=== PATIENT | male | born 1990 | race Two or more races ===

== ENCOUNTER 2016-08-24 14:00 | Emergency (ER) | payer SELFPAY ==
[~2016-08-24] VITALS: Ht 193 cm; Wt 154.2 kg
--- NOTE | 2016-08-24 14:10 | NUR ---
PT AMBULATORY TO ER BED 11. C/O LLE PAIN AND SWELLING AND REDNESS X 3 DAYS WORST TO LLE. DENIES TRAUMA. STATES POSSIBLE INSECT BITE. DENIES SOB. STABLE VITALS. AFEBRILE COLLECTION OFFICER. AWAITINGMD EVAL.
--- NOTE | 2016-08-24 14:25 | NUR ---
SADE CURRY AT BEDSIDE FOR EVAL.
--- NOTE | 2016-08-24 14:28 | NUR ---
IV LINE STARTED BLOOD DRAWN AND SENT TO LAB.
[2016-08-24] MEDS ORDERED: CLINDAMYCIN 900 MG in IV D5W 100 ML IV ONE (14:30)
[2016-08-24] MEDS ORDERED: KETOROLAC TROMETHAMINE INJ 30 MG/ML VIAL IV ONE (14:30)
[2016-08-24] MEDS ORDERED: KETOROLAC TROMETHAMINE INJ 30 MG/ML VIAL ONE (14:37)
[2016-08-24] MEDS ORDERED: IV SET PRIMARY PUMP SET 1 EA INFUS.SET MC ONE (14:37)
[2016-08-24 14:43] LABS: BASOPHILS % (AUTO) 0.3 % (0.0-2.0); EOSINOPHILS # (AUTO) 0.3 /CMM (0.0-0.7); EOSINOPHILS % (AUTO) 1.7 % (0.0-6.0); HEMATOCRIT 47 % (39-51); HEMOGLOBIN 15.8 g/dL (13.5-17.5); LYMPHOCYTES # (AUTO) 3.2 /CMM (0.8-4.8); LYMPHOCYTES % (AUTO) 20.3 % (20.0-44.0); MEAN CORPUSCULAR HEMOGLOBIN 29 PG (26.0-33.0); MEAN CORPUSCULAR HGB CONC 34 g/dl (31.0-36.0); MEAN CORPUSCULAR VOLUME 87 fL (80-96); MONOCYTES % (AUTO) 6.6 % (2.0-12.0); NEUTROPHILS % (AUTO) 71.1 % (43.0-81.0); PLATELET COUNT (AUTO) 285 /CMM (150-450); RDW COEFFICIENT OF VARIATION 12.4 (11.5-15.0); RED BLOOD CELL COUNT(AUTO) 5.37 MIL/uL (4.5-6.0); WHITE BLOOD COUNT (AUTO) 15.5 K/uL (4.3-11.0)
--- NOTE | 2016-08-24 14:52 | NUR ---
U/S TECH AT BEDSIDE FOR LLE DUPLEX ULTRASOUND.
[2016-08-24 14:53] LABS: CALCIUM, SERUM 9.1 mg/dL (8.5-10.1); CREATININE 1.2 mg/dL (0.6-1.3); POTASSIUM 3.6 mmol/L (3.5-5.1)
[2016-08-24 14:59] LABS: ALBUMIN 3.6 g/dL (3.4-5.0); BILIRUBIN,DIRECT 0.1 mg/dL (0.0-0.2); BILIRUBIN,TOTAL 0.5 mg/dL (0.2-1.0); TOTAL PROTEIN, SERUM 7.6 g/dL (6.4-8.2)
[2016-08-24 15:25] LABS: LACTIC ACID 1.6 mmol/L (0.4-2.0)
--- NOTE | 2016-08-24 16:24 | NUR ---
Patient discharged to home in stable condition. Written and verbal after care instructions given. Patient verbalizes understanding of instruction.IV removed. Catheter intact and site benign. Pressure and 4x4 applied to site. No bleeding noted.
[2016-08-24 16:26] VITALS: BP 128/77
== END 2016-08-24 16:27 | disposition home or self-care (01) ==
LOC: ER 14:05
DX: L03.116 Cellulitis of left lower limb (principal); E66.01 Morbid (severe) obesity due to excess calories; I87.2 Venous insufficiency (chronic) (peripheral); B35.1 Tinea unguium; D72.829 Elevated white blood cell count, unspecified; F17.200 Nicotine dependence, unspecified, uncomplicated
CPT/HCPCS: 36415; 80048-TC; 80076-TC; 83605-TC; 85025-TC; 87040-TC; 93971-TC; A4606; J1885; J3490; J7060; Z7610

== ENCOUNTER 2017-12-16 17:21 | Emergency (ER) | payer SELFPAY ==
[~2017-12-16] VITALS: Ht 195.6 cm; Wt 158.8 kg
[2017-12-16 17:34] VITALS: BP 147/96
[2017-12-16] MEDS ORDERED: diphenhydrAMINE HCL 50 MG CAPSULE ONE (18:25)
[2017-12-16] MEDS ORDERED: predniSONE 20 MG TABLET ONE (18:26)
[2017-12-16] MEDS ORDERED: FAMOTIDINE (20 MG) 20 MG TABLET ONE (18:26)
[2017-12-16] MEDS: diphenhydrAMINE HCL 50 MG CAPSULE PO ONE (18:31)
[2017-12-16] MEDS: FAMOTIDINE (20 MG) 20 MG TABLET PO ONE (18:32)
[2017-12-16] MEDS: predniSONE 10 MG TABLET PO ONE (18:32)
== END 2017-12-16 18:34 | disposition home or self-care (01) ==
LOC: ER 17:23
DX: L23.9 Allergic contact dermatitis, unspecified cause (principal); E66.01 Morbid (severe) obesity due to excess calories; B35.4 Tinea corporis; F17.200 Nicotine dependence, unspecified, uncomplicated; R19.8 Other specified symptoms and signs involving the digestive system and abdomen
CPT/HCPCS: A4606; Q0163; Z7610

== ENCOUNTER 2018-08-19 10:44 | Emergency (ER) | payer SELFPAY ==
[~2018-08-19] VITALS: Ht 188 cm; Wt 79.4 kg
--- NOTE | 2018-08-19 10:48 | NUR ---
Pt called to triage, pt not in waiting room
[2018-08-19 10:54] VITALS: BP 114/68
--- NOTE | 2018-08-19 11:21 | NUR ---
Patient discharged to home in stable condition. Written and verbal after care instructions given. Patient verbalizes understanding of instruction.
== END 2018-08-19 11:23 | disposition home or self-care (01) ==
LOC: ER 10:53
DX: H92.02 Otalgia, left ear (principal); F17.200 Nicotine dependence, unspecified, uncomplicated
CPT/HCPCS: Z7502

== ENCOUNTER 2018-09-15 21:28 | Emergency (ER) | payer OTHER ==
[~2018-09-15] VITALS: Ht 190.5 cm; Wt 92.5 kg
[2018-09-15 22:17] LABS: BASOPHILS # (AUTO) 0.1 /CMM (0.0-0.2); BASOPHILS % (AUTO) 0.9 % (0.0-2.0); EOSINOPHILS % (AUTO) 0.6 % (0.0-6.0); HEMATOCRIT 47 % (39-51); LYMPHOCYTES # (AUTO) 3.2 /CMM (0.8-4.8); LYMPHOCYTES % (AUTO) 28.9 % (20.0-44.0); MEAN CORPUSCULAR HGB CONC 34 g/dl (31.0-36.0); MEAN CORPUSCULAR VOLUME 93 fL (80-96); MONOCYTES # (AUTO) 0.8 /CMM (0.1-1.30); NEUTROPHILS # (AUTO) 6.9 /CMM (1.8-8.9); NEUTROPHILS % (AUTO) 62.6 % (43.0-81.0); PLATELET COUNT (AUTO) 280 /CMM (150-450); RED BLOOD CELL COUNT(AUTO) 5.05 MIL/uL (4.5-6.0); WHITE BLOOD COUNT (AUTO) 11.1 K/uL (4.3-11.0)
[2018-09-15] MEDS ORDERED: IV NS 0.9% 1,000 ML BAG IV ONE (22:30)
[2018-09-15] MEDS ORDERED: INSULIN LISPRO/ASPART 100 UNIT/ML CARTRIDGE SQ SCH (22:30)
[2018-09-15] MEDS ORDERED: INSULIN REGULAR, HUMAN 100 UNIT/ML 10 ML VIAL ONE (22:39)
[2018-09-15 22:43] LABS: ALBUMIN 3.8 g/dL (3.4-5.0); BILIRUBIN,DIRECT 0.1 mg/dL (0.0-0.2); BILIRUBIN,TOTAL 0.7 mg/dL (0.2-1.0); CALCIUM, SERUM 8.9 mg/dL (8.5-10.1); CREATININE 0.7 mg/dL (0.6-1.3); POTASSIUM 4.1 mmol/L (3.5-5.1); TOTAL PROTEIN, SERUM 7.3 g/dL (6.4-8.2)
--- NOTE | 2018-09-15 22:43 | NUR ---
ERROR ON DOCUMENTATION. INITIAL ORDER BY ANTOINETTE ZAVALA TO GIVE 10 UNITS OF LIPRO SQ. MED CHANGE TO REG INSULIN. DOCUMENTED ON WRONG MED, ANTOINETTE ZAVALA AWARE. PT RECEIVED 10 UNITS OF REG INSULIN SQ RADHA, PT RAMAKRISHNA WELL.
[2018-09-15] MEDS ORDERED: INSULIN NPH, HUMAN ISOPHANE 100 UNIT/ML CARTRIDGE SQ ONE (23:00)
[2018-09-16 01:17] VITALS: BP 113/71
== END 2018-09-16 01:18 ==
LOC: ER 21:29
DX: E11.9 Type 2 diabetes mellitus without complications (principal); J45.909 Unspecified asthma, uncomplicated; F17.200 Nicotine dependence, unspecified, uncomplicated
CPT/HCPCS: 36415; 80048; 80076; 82962 ×3; 85025; 96372; 99283; J1815; J7030

== ENCOUNTER 2018-09-16 11:37 | Emergency (ER) | payer OTHER ==
[~2018-09-16] VITALS: Ht 190.5 cm; Wt 92.5 kg
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
[2018-09-16 11:58] LABS: BASOPHILS # (AUTO) 0.1 /CMM (0.0-0.2); BASOPHILS % (AUTO) 0.7 % (0.0-2.0); EOSINOPHILS % (AUTO) 1.6 % (0.0-6.0); HEMATOCRIT 47 % (39-51); HEMOGLOBIN 15.9 g/dL (13.5-17.5); LYMPHOCYTES # (AUTO) 3.4 /CMM (0.8-4.8); LYMPHOCYTES % (AUTO) 36.3 % (20.0-44.0); MEAN CORPUSCULAR HGB CONC 34 g/dl (31.0-36.0); MEAN CORPUSCULAR VOLUME 94 fL (80-96); MONOCYTES # (AUTO) 0.7 /CMM (0.1-1.30); MONOCYTES % (AUTO) 7.7 % (2.0-12.0); NEUTROPHILS # (AUTO) 5.1 /CMM (1.8-8.9); NEUTROPHILS % (AUTO) 53.7 % (43.0-81.0); PLATELET COUNT (AUTO) 252 /CMM (150-450); RED BLOOD CELL COUNT(AUTO) 4.95 MIL/uL (4.5-6.0); WHITE BLOOD COUNT (AUTO) 9.4 K/uL (4.3-11.0)
[2018-09-16] MEDS ORDERED: IV NS 0.9% 1,000 ML BAG IV ONE ×2 (12:00→12:30)
[2018-09-16 12:22] LABS: POTASSIUM 4.2 mmol/L (3.5-5.1)
[2018-09-16 12:23] LABS: CALCIUM, SERUM 9.2 mg/dL (8.5-10.1); CREATININE 0.7 mg/dL (0.6-1.3)
[2018-09-16] MEDS ORDERED: INSULIN REGULAR, HUMAN 100 UNIT/ML 10 ML VIAL SQ ONE (12:30)
[2018-09-16] MEDS ORDERED: INSULIN REGULAR, HUMAN 100 UNIT/ML 10 ML VIAL ONE (12:31)
[2018-09-16 14:07] LABS: CREATININE 0.5 mg/dL (0.6-1.3); POTASSIUM 3.5 mmol/L (3.5-5.1)
--- NOTE | 2018-09-16 14:25 | NUR ---
DR OBRIEN AT BEDSIDE
--- NOTE | 2018-09-16 14:30 | NUR ---
IV removed. Catheter intact and site benign. Pressure and 4x4 applied to site. No bleeding noted.Patient discharged to home in stable condition. Written and verbal after care instructions given. Patient verbalizes understanding of instruction.
[2018-09-16 15:58] VITALS: BP 130/75
== END 2018-09-16 15:59 ==
LOC: ER 11:41
DX: E11.65 Type 2 diabetes mellitus with hyperglycemia (principal); J45.909 Unspecified asthma, uncomplicated; F17.200 Nicotine dependence, unspecified, uncomplicated
CPT/HCPCS: 36415; 80048 ×2; 84484; 85025; 93005; 96360; 96372; 99284; J1815; J7030 ×2

== ENCOUNTER 2018-11-29 19:28 | Inpatient (IN) | payer MEDICAID, OTHER ==
[~2018-11-29] VITALS: Ht 190.5 cm; Wt 134.3 kg
--- NOTE | 2018-11-29 19:54 | NUR ---
BIBSELF. TO ER BED 3. AAOX4. NAD NOTED, BREATHING EVEN AND UNLABORED. AMBULATORY. C/O "MTY SUGAR IS HIGH" AND UPPER LIP ABCESS. UPON ACCUCHECK BS RECORDED "HI". PT REPORT USING INSULIN AT 1PM. PT ALSO C/O UPPERLIP ABCESS, RED SWOLLEN W/ SCAB. AT BEDSIDE FOR EVAL. AWAITING ORDERS
[2018-11-29] MEDS ORDERED: IV NS 0.9% 1,000 ML BAG IV ONE ×3 (20:00→21:00)
[2018-11-29] MEDS ORDERED: VANCOMYCIN 1 GM in IV D5W 250 ML IV ONE (20:00)
[2018-11-29] MEDS ORDERED: ACETAMINOPHEN ES 500 MG TABLET PO ONE (20:00)
[2018-11-29] MEDS ORDERED: INSULIN REGULAR, HUMAN 100 UNIT/ML 10 ML VIAL IV ONE ×2 (20:00→21:00)
[2018-11-29] MEDS ORDERED: ACETAMINOPHEN ES 500 MG TABLET ONE (20:09)
--- NOTE | 2018-11-29 20:10 | NUR ---
BLOOD DRAW AND GIVEN TO STONE OPERATOR AT BEDSIDE
[2018-11-29] MEDS ORDERED: INSULIN REGULAR, HUMAN 100 UNIT/ML 10 ML VIAL ONE (20:11)
[2018-11-29] MEDS ORDERED: VANCOMYCIN 1 GM VIAL ONE (20:19)
[2018-11-29 20:20] LABS: BASOPHILS # (AUTO) 0.1 /CMM (0.0-0.2); BASOPHILS % (AUTO) 0.5 % (0.0-2.0); EOSINOPHILS % (AUTO) 0.8 % (0.0-6.0); HEMATOCRIT 48 % (39-51); HEMOGLOBIN 16.4 g/dL (13.5-17.5); LYMPHOCYTES # (AUTO) 3.5 /CMM (0.8-4.8); LYMPHOCYTES % (AUTO) 25.7 % (20.0-44.0); MEAN CORPUSCULAR HGB CONC 35 g/dl (31.0-36.0); MEAN CORPUSCULAR VOLUME 90 fL (80-96); MONOCYTES # (AUTO) 1.1 /CMM (0.1-1.30); MONOCYTES % (AUTO) 8.2 % (2.0-12.0); NEUTROPHILS # (AUTO) 8.9 /CMM (1.8-8.9); NEUTROPHILS % (AUTO) 64.8 % (43.0-81.0); PLATELET COUNT (AUTO) 252 /CMM (150-450); RED BLOOD CELL COUNT(AUTO) 5.26 MIL/uL (4.5-6.0); WHITE BLOOD COUNT (AUTO) 13.7 K/uL (4.3-11.0)
[2018-11-29 20:21] LABS: APPEARANCE,URINE Clear (CLEAR); BILIRUBIN,URINE Negative (NEGATIVE); BLOOD, URINE Negative Ery/uL (NEGATIVE); COLOR,URINE Light yellow (YELLOW); KETONES,URINE Negative (NEGATIVE); LEUKOCYTE ESTERASE ,URINE Negative (NEGATIVE); NITRITE, URINE Negative (NEGATIVE); PH,URINE 5.5 (5.0-8.0); PROTEIN,URINE Negative (NEGATIVE); UGLUCOSE 500 MG/DL mg/dL (NEGATIVE); UROBILINOGEN,URINE 0.2 EU/dL (0.2)
--- NOTE | 2018-11-29 20:22 | NUR ---
XRAY AT BEDSIDE
[2018-11-29 20:40] LABS: ALANINE AMINOTRANSFERASE 24 U/L (12-78); ALBUMIN 3.4 g/dL (3.4-5.0); ALKALINE PHOSPHATASE 197 U/L (46-116); ASPARTATE AMINOTRANSFERASE 8 U/L (15-37); BILIRUBIN,DIRECT 0.1 mg/dL (0.0-0.2); BILIRUBIN,TOTAL 0.3 mg/dL (0.2-1.0); CALCIUM, SERUM 9.3 mg/dL (8.5-10.1); CARBON DIOXIDE 28 mmol/L (21-32); CHLORIDE 92 mmol/L (98-107); CREATININE 0.9 mg/dL (0.6-1.3); POTASSIUM 3.4 mmol/L (3.5-5.1); SODIUM SERUM 130 mmol/L (136-145); TOTAL PROTEIN, SERUM 7.1 g/dL (6.4-8.2); UREA NITROGEN, BLOOD 14 mg/dL (7-18)
[2018-11-29 20:43] LABS: GLUCOSE 662 mg/dL (74-106)
[2018-11-29] MEDS ORDERED: diphenhydrAMINE HCL 50 MG/ML VIAL IV ONE (21:00)
[2018-11-29] MEDS ORDERED: diphenhydrAMINE HCL 50 MG/ML VIAL ONE (21:05)
[2018-11-29] MEDS ORDERED: IOHEXOL-300 100 ML VIAL IV ONE (21:09)
[2018-11-29] MEDS ORDERED: IV NS 0.9% 250 ML IV ONE (21:10)
[2018-11-29] MEDS ORDERED: CT SWABBABLE VALVE TRANS SET 1 EA INFUS.SET MC ONE (21:10)
--- NOTE | 2018-11-29 21:50 | NUR ---
BS 305 MADE AWARE. NNO AT THIS TIME
--- NOTE | 2018-11-29 21:54 | NUR ---
BED ASSIGNMENT: MED SURG 103
[2018-11-29] MEDS ORDERED: ZOLPIDEM TARTRATE 5 MG TABLET PO PRN (22:00)
[2018-11-29] MEDS ORDERED: MAGNESIUM HYDROXIDE 30 ML UDC PO PRN (22:00)
[2018-11-29] MEDS ORDERED: ACETAMINOPHEN 325 MG TABLET PO PRN (22:00)
[2018-11-29] MEDS ORDERED: MAG HYDROX/AL HYDROX/SIMETH 30 ML UDC PO PRN (22:00)
[2018-11-29] MEDS ORDERED: ONDANSETRON HCL/PF 4 MG/2 ML VIAL IVP PRN (22:00)
[2018-11-29] MEDS ORDERED: Z GUARD REMEDY 2 OZ OINT TP PRN (22:00)
[2018-11-29] MEDS ORDERED: DEXTROSE 50%-WATER 50 ML DISP.SYRIN IV PRN (22:00)
[2018-11-29] MEDS ORDERED: *INSULIN REGULAR(HUMULIN R)HUM 100 UNIT/ML VIAL SQ PRN (22:00)
[2018-11-29] MEDS ORDERED: HYDROCODONE/APAP 5/325MG 1 EACH TABLET PO PRN (22:00)
[2018-11-29] MEDS ORDERED: MORPHINE SULFATE INJ 2 MG/ML DISP.SYRIN IV PRN (22:00)
[2018-11-29] MEDS ORDERED: IV 1/2NS 1000 ML 1,000 ML IV PRN (22:00)
--- NOTE | 2018-11-29 22:18 | NUR ---
REPORT GIVEN TO ABEL ORTEGA FOR AMAYA. PT TO 103 MED SURG
[2018-11-29] MEDS ORDERED: ZOSYN IVPB 3.375 G in IV D5W 50ml IV ONE (22:30)
[2018-11-29] MEDS: INSULIN REGULAR, HUMAN 100 UNIT/ML 3 ML VIAL SQ PRN (22:40)
[2018-11-29] MEDS: BLOOD SUGAR DIAGNOSTIC 1 EACH STRIP IN SCH (22:47)
[2018-11-29] MEDS ORDERED: PIPERACILLIN /TAZOBACTAM 3.375 G VIAL IV ONE (22:53)
[2018-11-30] MEDS: IV NS 0.9% 1,000 ML IV PRN ×2 (01:26→12:21)
[2018-11-30 04:00] VITALS: BP 115/79
[2018-11-30] MEDS ORDERED: FEE PK DOSING 1 MIN EA MC ONE (07:11)
[2018-11-30 07:17] LABS: BASOPHILS # (AUTO) 0.1 /CMM (0.0-0.2); BASOPHILS % (AUTO) 0.5 % (0.0-2.0); EOSINOPHILS % (AUTO) 1.6 % (0.0-6.0); HEMATOCRIT 44 % (39-51); HEMOGLOBIN 15.2 g/dL (13.5-17.5); LYMPHOCYTES # (AUTO) 4.6 /CMM (0.8-4.8); LYMPHOCYTES % (AUTO) 35.5 % (20.0-44.0); MEAN CORPUSCULAR HGB CONC 34 g/dl (31.0-36.0); MEAN CORPUSCULAR VOLUME 89 fL (80-96); MONOCYTES # (AUTO) 0.9 /CMM (0.1-1.30); MONOCYTES % (AUTO) 7.2 % (2.0-12.0); NEUTROPHILS # (AUTO) 7.2 /CMM (1.8-8.9); NEUTROPHILS % (AUTO) 55.2 % (43.0-81.0); PLATELET COUNT (AUTO) 228 /CMM (150-450); RED BLOOD CELL COUNT(AUTO) 4.99 MIL/uL (4.5-6.0)
[2018-11-30 07:25] LABS: CREATININE 0.5 mg/dL (0.6-1.3); MAGNESIUM 1.7 mg/dL (1.8-2.4); PHOSPHORUS 3.6 mg/dL (2.5-4.9); POTASSIUM 3.3 mmol/L (3.5-5.1)
[2018-11-30 07:56] LABS: THYROID STIMULATING HORMONE 3.251 uIU/mL (0.358-3.74)
[2018-11-30 08:00] VITALS: BP 149/64
[2018-11-30] MEDS: VANCOMYCIN 1.5 GM in IV D5W 500 ML IV SCH ×2 (08:09→20:21)
[2018-11-30] MEDS: PIPERACILLIN /TAZOBACTAM 3.375 G in IV D5W 100 ML IV SCH ×2 (08:09→16:26)
[2018-11-30] MEDS: INSULIN REGULAR, HUMAN 100 UNIT/ML 3 ML VIAL SQ PRN ×3 (08:12→17:37)
[2018-11-30] MEDS: BLOOD SUGAR DIAGNOSTIC 1 EACH STRIP IN SCH ×4 (08:18→22:00)
[2018-11-30] MEDS ORDERED: INSU100V7 SQ (08:18)
[2018-11-30] MEDS ORDERED: METF-442 PO (08:18)
[2018-11-30] MEDS ORDERED: INSU100V39 SQ (08:18)
[2018-11-30] MEDS: INSULIN GLARGINE, 100 UNIT/ML CARTRIDGE SQ SCH (11:02)
[2018-11-30] MEDS ORDERED: POTASSIUM CHLORIDE 20 MEQ TAB.PRT.SR PO SCH (11:30)
[2018-11-30] MEDS: Magnesium 1GM/D5W 100ML PREMIX 100 ML IV SCH ×2 (12:22→14:49)
[2018-11-30 16:00] VITALS: BP 111/69
--- NOTE | 2018-11-30 18:18 | NUR ---
MS ROMAN NOTES CALLED [facility] TO PAGE DR QUINTANILLA RE: CRITICAL BS 466MG/DL. 20 UNITS INSULIN GIVEN. Addendum: 11/30/18 at 1945 by NAVNEET CANO RN AWARE. NO NEW ORDERS RECEIVED
--- NOTE | 2018-11-30 19:00 | NUR ---
MS RN NOTES PT IN BED, A/OX3. CRITICAL BS LEVEL REPORTED TO MD. ENDORSED TO NIGHT NURSE FOR AMAYA.
--- NOTE | 2018-11-30 19:30 | NUR ---
MS RN NOTES RECEIVED PATIENT ON BED AWAKE ALERT ORIENTED X3, ROOM AIR, TOLERATED WELL, LFA #22G AND RFA#18G NS @125ML/HR, NO S/S OF INFILTRATION, BLOOD SUGER [phone] @1730, 20U INSULIN R GIVEN. ALL SAFETY MEASURES ON, BED LOW/LOCKED POSITION, CALL LIGHT CLOSE. WILL CONTINUE FOLLOW
[2018-11-30 20:00] VITALS: BP 114/68
--- NOTE | 2018-12-01 | NUR ---
MS RN NOTES CALLED [facility] TO PAGE LOGAN RE: INITIAL CRITICAL BS [phone] @2236 REPEAT [phone] @2315, PER DMITRRIY 10 UNITS INSULIN GIVEN, RECHECK IN 4 HOURS.
[2018-12-01] MEDS: PIPERACILLIN /TAZOBACTAM 3.375 G in IV D5W 100 ML IV SCH (00:06)
[2018-12-01 04:00] VITALS: BP 113/69
--- NOTE | 2018-12-01 07:10 | NUR ---
RN OPENING NOTES RECEIVED REPORT AT BEDSIDE. PT AWAKE, A/OX4. ON ROOM AIR. NO S/S OF RESPIRATORY DISTRESS NOTED. NO SOB. RFA#18 AND LFA #18 BOTH INTACT, PATENT AND FLUSHED WELL. NO COMPLAIN OF PAIN AT THIS TIME. SAFETY PRECAUTION IN PLACE. URINAL AT BED SIDE. BED ALARM ON. HOB ELEVATED. BED LOCKED AND LOWEST POSITION. WILL CONTINUE TO MONITOR CLOSELY.
[2018-12-01 07:19] LABS: CALCIUM, SERUM 8.2 mg/dL (8.5-10.1); CREATININE 0.6 mg/dL (0.6-1.3); MAGNESIUM 1.7 mg/dL (1.8-2.4); POTASSIUM 3.8 mmol/L (3.5-5.1)
--- NOTE | 2018-12-01 07:27 | NUR ---
MS RN CLOSING NOTES PATIENT ON BED SLEEPING, ALERT/ORIENTED X3, ROOM AIR, TOLERATED WELL, LFA #22G AND RFA#18G TKO, NO S/S OF INFILTRATION, BLOOD SUGAR HAS BEEN RISING AND DRAPING DURING NIGHT. ALL SAFETY MEASURES ON, BED LOW/LOCKED POSITION, CALL LIGHT CLOSE. WILL ENDORSE TO AM NURSE FOR CONTINUE CARE
[2018-12-01 07:40] LABS: BASOPHILS % (AUTO) 0.3 % (0.0-2.0); EOSINOPHILS % (AUTO) 1.4 % (0.0-6.0); HEMATOCRIT 45 % (39-51); HEMOGLOBIN 15.5 g/dL (13.5-17.5); LYMPHOCYTES # (AUTO) 3.7 /CMM (0.8-4.8); LYMPHOCYTES % (AUTO) 34.5 % (20.0-44.0); MEAN CORPUSCULAR HGB CONC 34 g/dl (31.0-36.0); MEAN CORPUSCULAR VOLUME 90 fL (80-96); MONOCYTES # (AUTO) 0.8 /CMM (0.1-1.30); MONOCYTES % (AUTO) 7.1 % (2.0-12.0); NEUTROPHILS # (AUTO) 6.1 /CMM (1.8-8.9); NEUTROPHILS % (AUTO) 56.7 % (43.0-81.0); PLATELET COUNT (AUTO) 228 /CMM (150-450); RED BLOOD CELL COUNT(AUTO) 5.03 MIL/uL (4.5-6.0); WHITE BLOOD COUNT (AUTO) 10.7 K/uL (4.3-11.0)
[2018-12-01] MEDS: BLOOD SUGAR DIAGNOSTIC 1 EACH STRIP IN SCH (07:44)
[2018-12-01] MEDS: INSULIN REGULAR, HUMAN 100 UNIT/ML 3 ML VIAL SQ PRN (07:47)
[2018-12-01 08:00] VITALS: BP 104/63
[2018-12-01] MEDS: VANCOMYCIN 1.5 GM in IV D5W 500 ML IV SCH (08:22)
[2018-12-01] MEDS: INSULIN GLARGINE, 100 UNIT/ML CARTRIDGE SQ SCH (09:40)
[2018-12-01] MEDS ORDERED: SULF1TAB48 PO (09:48)
[2018-12-01] MEDS ORDERED: DOXY100C41 PO (09:48)
[2018-12-01] MEDS ORDERED: MAGNESIUM OXIDE 400 MG TABLET PO ONE (10:00)
[2018-12-01] MEDS ORDERED: INSULIN ASPART/LISPRO 100 UNIT/ML CARTRIDGE SQ SCH ×2 (10:00→12:00)
[2018-12-01] MEDS ORDERED: INSULIN GLARGINE, 100 UNIT/ML CARTRIDGE SQ ONE (10:00)
--- NOTE | 2018-12-01 11:00 | NUR ---
MS RN NOTE PATIENT GOT DISCHARGED TO HOME. EXIT CARE GIVEN TO HIM. PT VERBALIZED UNDERSTANDING. A/O/X4, STABLE, AMBULATORY AND WALKED OUT BY HIMSELF. BELONGING RETURNED. IV CATHETERS AND ID BAND REMOVED.
== END 2018-12-01 11:00 | disposition home or self-care (01) | DRG 720 ==
LOC: ER 19:31 → MEDSG1 21:59
PROVIDERS: ADMIT Student in an Organized Health Care Education/Training Program; ATTEND Nurse Practitioner Acute Care
DX: A41.9 Sepsis, unspecified organism (principal); G93.41 Metabolic encephalopathy; E87.2 Acidosis; E87.1 Hypo-osmolality and hyponatremia; E11.65 Type 2 diabetes mellitus with hyperglycemia; K13.0 Diseases of lips; D72.829 Elevated white blood cell count, unspecified; F15.10 Other stimulant abuse, uncomplicated; E87.6 Hypokalemia; J45.909 Unspecified asthma, uncomplicated; F12.10 Cannabis abuse, uncomplicated; F17.210 Nicotine dependence, cigarettes, uncomplicated
CPT/HCPCS: 36415; 70487-TC; 71045-TC; 80048-TC; 80061-TC; 80076-TC; 80202-TC; 80305; 81000-TC; 82962-TC; 83605-TC; 83735-TC; 84100-TC; 84443-TC; 85025-TC; 87040-TC; 87081-TC; 87806; G0378; G0480; J1200; J1815; J2543; J3370; J3475; J3490; J7030; J7050; J7060; Q9967

== ENCOUNTER 2019-04-23 22:23 | Emergency (ER) | payer SELFPAY ==
[~2019-04-23 22:23] MED LIST: DOXY100C41 PO; INSU100V39 SQ; INSU100V7 SQ; METF-442 PO; SULF1TAB48 PO
--- NOTE | 2019-04-23 22:39 | NUR ---
CALLED FOR PT. NO RESPONSE
--- NOTE | 2019-04-23 23:02 | NUR ---
CALLED FOR PT. NO RESPONSE
--- NOTE | 2019-04-23 23:22 | NUR ---
CALLED FOR PT. NO RESPONSE
== END 2019-04-23 23:56 | disposition left against medical advice (07) ==
LOC: ER 22:29
DX: Z53.21 Procedure and treatment not carried out due to patient leaving prior to being seen by health care provider (principal)

== ENCOUNTER 2019-06-24 04:26 | Emergency (ER) | payer MEDICAID ==
[~2019-06-24] VITALS: Ht 193 cm; Wt 84.8 kg
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
--- NOTE | 2019-06-24 05:16 | NUR ---
[facility] CALLED SPOKE TO MYLES STATES NO BED AVAILABLE AT THIS TIME BESIDES PEDS.
[2019-06-24] MEDS ORDERED: VANCOMYCIN 1 GM VIAL ONE (05:18)
[2019-06-24 05:20] LABS: BASOPHILS # (AUTO) 0.1 /CMM (0.0-0.2); BASOPHILS % (AUTO) 0.5 % (0.0-2.0); EOSINOPHILS % (AUTO) 0.3 % (0.0-6.0); HEMATOCRIT 45 % (39-51); HEMOGLOBIN 14.8 g/dL (13.5-17.5); LYMPHOCYTES # (AUTO) 3.2 /CMM (0.8-4.8); MEAN CORPUSCULAR HGB CONC 33 g/dl (31.0-36.0); MEAN CORPUSCULAR VOLUME 89 fL (80-96); MONOCYTES # (AUTO) 1.7 /CMM (0.1-1.30); NEUTROPHILS # (AUTO) 10.2 /CMM (1.8-8.9); NEUTROPHILS % (AUTO) 67.2 % (43.0-81.0); PLATELET COUNT (AUTO) 293 /CMM (150-450); RED BLOOD CELL COUNT(AUTO) 4.99 MIL/uL (4.5-6.0); WHITE BLOOD COUNT (AUTO) 15.2 K/uL (4.3-11.0)
--- NOTE | 2019-06-24 05:22 | NUR ---
DR. CARLOS MOSS PER KEELY LLOYD ORDER.
[2019-06-24] MEDS ORDERED: VANCOMYCIN 1 GM in IV D5W 250 ML IV ONE (05:30)
[2019-06-24 05:38] LABS: CALCIUM, SERUM 9.3 mg/dL (8.5-10.1); CREATININE 0.7 mg/dL (0.6-1.3); POTASSIUM 3.4 mmol/L (3.5-5.1)
[2019-06-24 05:45] LABS: ALBUMIN 3.3 g/dL (3.4-5.0); BILIRUBIN,DIRECT 0.1 mg/dL (0.0-0.2); BILIRUBIN,TOTAL 0.6 mg/dL (0.2-1.0); TOTAL PROTEIN, SERUM 7.3 g/dL (6.4-8.2)
--- NOTE | 2019-06-24 06:39 | NUR ---
PT ASLEEP, NO ACUTE DISTRESS NOTED, RESP EVEN AND UNLABORED. CALL LIGHT WIHTIN REACH. WILL CONTINUE TO MONITOR PT CLOSELY.
--- NOTE | 2019-06-24 08:35 | NUR ---
CALLED [facility] FOR TRANSFER. AT THE MOMENT NO BEDS AVAILABLE FOR NON [facility] MEM[facility]ERS.
[2019-06-24 09:19] VITALS: BP 123/68
--- NOTE | 2019-06-24 09:41 | NUR ---
IV removed. Catheter intact and site benign. Pressure and 4x4 applied to site. No bleeding noted.Patient does not wish to proceed with medical care recommended by Dr. Salmeron. Patient given information related to possible complications, up to and including , which could occur as a result of leaving the hospital at this time. Patient verbalizes understanding of risks involved due to leaving against medical advice. Patient has signed AMA form.
== END 2019-06-24 09:42 | disposition left against medical advice (07) ==
LOC: ER 04:26
DX: L02.512 Cutaneous abscess of left hand (principal); L03.114 Cellulitis of left upper limb; F17.200 Nicotine dependence, unspecified, uncomplicated; E11.9 Type 2 diabetes mellitus without complications; J45.909 Unspecified asthma, uncomplicated; Z59.0 Homelessness; Z79.899 Other long term (current) drug therapy; Z79.4 Long term (current) use of insulin; Z79.84 Long term (current) use of oral hypoglycemic drugs; X58.XXXA Exposure to other specified factors, initial encounter; Y93.89 Activity, other specified; Y92.89 Other specified places as the place of occurrence of the external cause; Y99.8 Other external cause status
CPT/HCPCS: 36415; 73130; 80048; 80076; 85025; 85730; 87040 ×2; 96365; 99285; 99406; J3370

== ENCOUNTER 2019-11-15 11:16 | Emergency (ER) | payer SELFPAY ==
[~2019-11-15] VITALS: Ht 193 cm; Wt 86.6 kg
[2019-11-15 11:30] VITALS: BP 126/82
[2019-11-15] MEDS ORDERED: LEVETIRACETAM (250 MG) 250 MG TABLET PO ONE ×2 (11:44→12:00)
--- NOTE | 2019-11-15 11:53 | NUR ---
Patient discharged to home in stable condition. Written and verbal after care instructions given. Patient verbalizes understanding of instruction. Pt ambulatory with a steady gait
== END 2019-11-15 11:53 | disposition home or self-care (01) ==
LOC: ER 11:17
DX: G40.909 Epilepsy, unspecified, not intractable, without status epilepticus (principal); J45.909 Unspecified asthma, uncomplicated; E11.9 Type 2 diabetes mellitus without complications; Z76.0 Encounter for issue of repeat prescription; Z79.4 Long term (current) use of insulin; Z79.899 Other long term (current) drug therapy

== ENCOUNTER 2020-01-19 11:54 | Emergency (ER) | payer SELFPAY ==
[~2020-01-19] VITALS: Ht 195.6 cm; Wt 95.3 kg
[2020-01-19 12:07] VITALS: BP 133/76
--- NOTE | 2020-01-19 12:53 | NUR ---
EAR IRRIGATED. MD AT BEDSIDE.
== END 2020-01-19 13:14 | disposition home or self-care (01) ==
LOC: ER 11:57
DX: H60.92 Unspecified otitis externa, left ear (principal); H92.02 Otalgia, left ear; R56.9 Unspecified convulsions; E11.9 Type 2 diabetes mellitus without complications; J45.909 Unspecified asthma, uncomplicated; Z79.4 Long term (current) use of insulin; Z79.899 Other long term (current) drug therapy

== ENCOUNTER 2020-03-11 10:27 | Emergency (ER) | payer SELFPAY ==
[~2020-03-11] VITALS: Ht 190.5 cm; Wt 90.7 kg
[2020-03-11 10:35] VITALS: BP 127/79
== END 2020-03-11 10:54 | disposition home or self-care (01) ==
LOC: ER 10:28
DX: Z76.0 Encounter for issue of repeat prescription (principal); R56.9 Unspecified convulsions; J45.909 Unspecified asthma, uncomplicated; E11.9 Type 2 diabetes mellitus without complications; Z79.4 Long term (current) use of insulin

== ENCOUNTER 2020-03-25 07:27 | Emergency (ER) | payer SELFPAY ==
[~2020-03-25] VITALS: Ht 193 cm; Wt 90.7 kg
[2020-03-25 07:34] VITALS: BP 131/86
[2020-03-25] MEDS ORDERED: LEVETIRACETAM (250 MG) 250 MG TABLET PO ONE ×2 (07:40→08:00)
--- NOTE | 2020-03-25 07:44 | NUR ---
Patient discharged to home in stable condition. Written and verbal after care instructions given. Patient verbalizes understanding of instruction.
== END 2020-03-25 07:45 | disposition home or self-care (01) ==
LOC: ER 07:29
DX: G40.909 Epilepsy, unspecified, not intractable, without status epilepticus (principal); J45.909 Unspecified asthma, uncomplicated; E11.9 Type 2 diabetes mellitus without complications; F17.200 Nicotine dependence, unspecified, uncomplicated; Z79.84 Long term (current) use of oral hypoglycemic drugs

== ENCOUNTER 2020-10-17 03:40 | Emergency (ER) | payer OTHER ==
[~2020-10-17] VITALS: Ht 190.5 cm; Wt 93.0 kg
[~2020-10-17 03:40] MED LIST changes: +DOXY-326 PO; -DOXY100C41 PO
[2020-10-17 03:58] VITALS: BP 112/94
[2020-10-17] MEDS ORDERED: LEVE1000 PO (04:13)
[2020-10-17] MEDS ORDERED: LEVETIRACETAM (250 MG) 250 MG TABLET PO ONE ×2 (04:23→04:30)
== END 2020-10-17 04:29 | disposition home or self-care (01) ==
LOC: ER 03:40
DX: Z76.0 Encounter for issue of repeat prescription (principal); R56.9 Unspecified convulsions; J45.909 Unspecified asthma, uncomplicated; E11.9 Type 2 diabetes mellitus without complications; Z79.4 Long term (current) use of insulin; Z79.899 Other long term (current) drug therapy

== ENCOUNTER 2022-09-18 11:43 | Emergency (ER) | payer OTHER ==
[~2022-09-18] VITALS: Ht 190.5 cm; Wt 99.8 kg
[~2022-09-18 11:43] MED LIST changes: +LEVE1000 PO
--- NOTE | 2022-09-18 12:00 | NUR ---
RECEVED PT 32 YRS MALE WAKING IN ASKING FOR KEPPRA RX RUN OUT OF HIS MEDICTION
[2022-09-18] MEDS ORDERED: LEVETIRACETAM (250 MG) 250 MG TABLET PO ONE ×2 (12:30→12:43)
[2022-09-18] MEDS ORDERED: IV NS 0.9% 1,000 ML BAG IV ONE (13:00)
--- NOTE | 2022-09-18 13:00 | NUR ---
HR OVER 120 B/MIN DR. ELDRIDGE AWARE EK DONE
--- NOTE | 2022-09-18 13:10 | NUR ---
PT REFUSED BLOOD TO DROW AND INSERTED IV LINE
[2022-09-18] MEDS ORDERED: LEVE1000 PO (13:15)
--- NOTE | 2022-09-18 13:18 | NUR ---
Patient does not wish to proceed with medical care recommended by Dr. Ribeiro ). Patient given information related to possible complications, up to and including , which could occur as a result of leaving the hospital at this time. Patient verbalizes understanding of risks involved due to leaving against medical advice. Patient has signed AMA form.
--- NOTE | 2022-09-18 13:20 | NUR ---
RX FOR KEPPRA GIVEN TO PT
[2022-09-18 13:36] VITALS: BP 115/70
== END 2022-09-18 13:38 | disposition left against medical advice (07) ==
LOC: ER 11:51
DX: Z76.0 Encounter for issue of repeat prescription (principal); R00.0 Tachycardia, unspecified; E11.65 Type 2 diabetes mellitus with hyperglycemia; J45.909 Unspecified asthma, uncomplicated; E11.9 Type 2 diabetes mellitus without complications; F17.200 Nicotine dependence, unspecified, uncomplicated; Z91.013 Allergy to seafood; Z86.69 Personal history of other diseases of the nervous system and sense organs; Z79.4 Long term (current) use of insulin; Z79.899 Other long term (current) drug therapy
CPT/HCPCS: 99285; 93005; 82962; J7030